=== PATIENT | female | born 1975 | race Hispanic/Latino ===

== ENCOUNTER 2017-12-28 16:35 | Day surgery (SDC) | payer OTHER, SELFPAY ==
[2017-12-28 17:06] VITALS: BP 130/72; TEMP 98.1; BMI 28.9
[2017-12-28 17:50] LABS: Amnisure Test No Membranes Rupture (No Rupture)
[2017-12-28 17:51] LABS: Amnisure Internal Control QC ACCEPTABLE (ACCEPTABLE)
--- NOTE | 2017-12-28 18:27 | PDOC.LDHP ---
Labor and Delivery H&P Chief complaint: loss of fluid HPI: 42 y/o at 38w1d, patient of Dr. Briseno, presents with a small amount of LOF today with some intermittent contractions. Denies VB, LOF, or decreased FM. ROS neg for HEENT, CV, pulm, GI, , neuro, psych, skin, musculoskeletal, or constitutional symptoms other than mentioned above. OB History Details: 3 prior term SVDs D&C for triplets Current complications: none Past Medical History: Hx HSV Current medications: pre-kasey vitamins Previous surgical history: dilation and curettage Allergies/Adverse Reactions: Allergies Allergy/AdvReac Type Severity Reaction Status Date / Time No Known Allergies Allergy Verified 05/14/15 18:15 Social history: none - Physical Exam Vital signs reviewed and normal: yes General: NAD, resting Lungs: nonlabored breathing Abdomen: gravid Extremeties: no edema FHT: category 1 [place] contractions every: intermittent - Vaginal Exam cm dilated: 3 Effacement: 50% Station: -2 - OB Labs Additional Labs: Amnisure negative - Assessment 42 y/o at 38w1d with no e/o SROM or labor. status reassuring with reactive NST. - Plan -: D/c home with precautions. Advised to keep appointments as scheduled.
== END 2017-12-28 18:30 | disposition home or self-care (01) ==
LOC: L&D/OP 16:35
PROVIDERS: ATTEND Obstetrics & Gynecology
DX: O47.1 False labor at or after 37 completed weeks of gestation (principal); Z3A.38 38 weeks gestation of pregnancy
CPT/HCPCS: 84112; 99282

== ENCOUNTER 2017-12-31 11:50 | Inpatient (IN) | payer BC, SELFPAY ==
[2017-12-31] MEDS ORDERED: Promethazine HCl 25 MG/ML VIAL IM PRN ×2 (12:28→15:22)
[2017-12-31] MEDS ORDERED: Ondansetron HCl/PF 4 MG/2 ML Vial IVP PRN ×3 (12:28→20:47)
[2017-12-31] MEDS ORDERED: Acetaminophen 500 MG TAB PO PRN (12:28)
[2017-12-31] MEDS ORDERED: Dextrose 5%-Lactated Ringers 1,000 ML IV SCH (12:30)
[2017-12-31] MEDS ORDERED: Penicillin G Potassium 5 MILL.UNITS in Sodium Chloride 0.9% 100 ML IVPB SCH (12:30)
[2017-12-31] MEDS ORDERED: NS w/ Oxytocin 10 units 500 ML IVPB SCH (12:45)
[2017-12-31 12:49] VITALS: BMI 29.2
[2017-12-31 13:01] LABS: Hemoglobin 11.8 g/dL (12.0-16.0); Mean Corpuscular HGB CONC 33.2 g/dL (32.0-36.0); Mean Corpuscular Hemoglobin 28.4 pg (27.0-31.0); Mean Corpuscular Volume 85.6 fl (81.0-99.0); Mean Platelet Volume 8.5 fL (7.4-10.4); Platelet Count 231 thou/uL (130-400); RBC Distribution Width 20.3 % (11.5-14.5); Red Blood Cell (RBC) Count 4.15 mill/uL (4.20-5.40); White Blood Cell (WBC) Count 11.2 thou/uL (4.8-10.8)
[2017-12-31 13:34] LABS: HBSAg Index 0.14 S/CO (0-0.99); HIV (1/2) Antibody/Antigen Non-Reactive (NonReactive); HIV 1/2 INDEX 0.12 S/CO (<1.00); Hep B Surf Ag Non-Reactive S/CO (NonReactive); Syphilis Antibody Nonreactive (Nonreactive); Syphilis Antibody Index 0.05 S/CO (<1.00 Non-Reactive)
[2017-12-31] MEDS ORDERED: DISCONTINUE ALL PREVIOUS NARCOTICS FS SCH (13:45)
[2017-12-31] MEDS ORDERED: Bupivacaine 0.75% 13.4 ML, fentaNYL Citrate/PF 400 MCG in Sodium Chloride 0.9% 78.6 ML EPIDURAL SCH ×2 (13:45→16:00)
[2017-12-31] MEDS ORDERED: Butorphanol Tartrate 1 MG/ML VIAL ONE (14:10)
[2017-12-31] MEDS ORDERED: NS / Oxytocin 40 units/1000ml 1,000 ML ONE (14:25)
[2017-12-31] MEDS ORDERED: diphenhydrAMINE 50 MG/ML VIAL IVP PRN (15:22)
[2017-12-31] MEDS ORDERED: Eucerin (Mineral Oil/Petrolatum,White) 30 gm Jar TOP PRN (15:22)
[2017-12-31] MEDS ORDERED: Naloxone HCl 0.4 mg/ml Vial IVP PRN ×2 (15:22)
[2017-12-31] MEDS ORDERED: Lactated Ringer's 500 ML IV PRN (15:22)
[2017-12-31] MEDS ORDERED: ePHEDrine/0.9% NaCl/PF SYRINGE 50 mg/10 ml SLOW IVP PRN (15:22)
[2017-12-31] MEDS ORDERED: Acetaminophen 325 MG TAB PO PRN (15:22)
[2017-12-31] MEDS ORDERED: Fentanyl 4mcg/Marcaine 0.1% Cassette 100 ML EPIDURAL SCH (15:30)
[2017-12-31] MEDS ORDERED: Communication Order-Pharmacy FS SCH (15:30)
[2017-12-31] MEDS ORDERED: Penicillin G Potassium 2.5 MILL.UNITS in Sodium Chloride 0.9% 50 ML IVPB SCH (16:00)
[2017-12-31] MEDS ORDERED: Penicillin G 2.5 MILL.units 50 ML ONE (16:18)
[2017-12-31] MEDS: Penicillin G Potassium 2.5 MILL.UNITS in Sodium Chloride 0.9% 50 ML IVPB SCH ×2 (18:41→21:19)
[2017-12-31] MEDS: NS / Oxytocin 40 units/1000ml 1,000 ML IV SCH ×2 (20:40→21:45)
[2017-12-31] MEDS ORDERED: Milk Of Magnesia 30 ML UDCUP PO PRN (20:47)
[2017-12-31] MEDS ORDERED: Acetaminophen/Codeine 30-300mg Tablet PO PRN ×2 (20:47)
[2017-12-31] MEDS ORDERED: Lanolin Ointment 7 GM TUBE TOP PRN (20:47)
[2017-12-31] MEDS ORDERED: Bisacodyl 10 MG SUPP PR PRN (20:47)
[2017-12-31] MEDS ORDERED: Benzocaine/Menthol 20-0.5% 60 ML CAN TOP PRN (20:47)
[2017-12-31] MEDS ORDERED: diphenhydrAMINE 25 MG CAP PO PRN (20:47)
[2017-12-31] MEDS ORDERED: Preparation H Ointment 28 GM TUBE PR PRN (20:47)
[2017-12-31] MEDS ORDERED: Zolpidem Tartrate 5 MG TAB PO PRN (20:47)
[2017-12-31] MEDS: Ibuprofen 800 MG TAB PO SCH (23:22)
[2017-12-31] MEDS: Docusate Calcium (SURFAK) 240 MG CAP PO SCH (23:22)
[2018-01-01] MEDS: Ibuprofen 800 MG TAB PO SCH ×3 (06:43→21:18)
[2018-01-01] MEDS: Ferrous Sulfate 325 MG TAB PO SCH ×2 (07:44→17:53)
[2018-01-01] MEDS ORDERED: Adacel (T-DAP) 0.5 ML VIAL IM ONE (09:00)
[2018-01-01] MEDS: Prenatal Vitamin 1 TAB PO SCH (09:25)
[2018-01-01] MEDS: Docusate Calcium (SURFAK) 240 MG CAP PO SCH ×2 (09:25→21:18)
[2018-01-02 01:54] VITALS: BP 138/73; TEMP 97.9
[2018-01-02] MEDS: Ibuprofen 800 MG TAB PO SCH (06:18)
[2018-01-02] MEDS: Ferrous Sulfate 325 MG TAB PO SCH (09:08)
[2018-01-02] MEDS: Prenatal Vitamin 1 TAB PO SCH (09:41)
[2018-01-02] MEDS: Docusate Calcium (SURFAK) 240 MG CAP PO SCH (09:41)
== END 2018-01-02 13:25 | disposition home or self-care (01) | DRG 775 ==
LOC: L&D 11:50 → 3SW 22:13
PROVIDERS: ADMIT Obstetrics & Gynecology; ATTEND Obstetrics & Gynecology
PROC: 10E0XZZ Delivery of Products of Conception, External Approach (ICD-10-PCS; principal; 2017-12-31)
PROC: 4A0HXCZ Measurement of Products of Conception, Cardiac Rate, External Approach (ICD-10-PCS; 2017-12-31)
DX: O80 Encounter for full-term uncomplicated delivery (principal); Z3A.39 39 weeks gestation of pregnancy; Z37.0 Single live birth; Z87.891 Personal history of nicotine dependence
CPT/HCPCS: 51702; 85027; 86780; 86850; 86900; 86901; 87340; 87389; J0595; J2540; J3010; J7050

== ENCOUNTER 2019-10-12 11:21 | Outpatient (CLI) | payer BC ==
[2019-10-12 12:28] LABS: #Eosinphils 0.1 thou/uL (0.0-0.7); #Lymphocytes 1.4 thou/uL (1.20-3.40); #Monocytes 0.3 thou/uL (0.11-0.59); #Neutrophils 3.7 thou/uL (1.40-6.50); %Basophils 0.1 % (0.0-1.0); %Eosinophils 1.9 % (0.0-10.0); %Lymphocytes 24.5 % (21.0-51.0); %Monocytes 5.8 % (0.0-10.0); %Neutrophils 67.6 % (42.0-75.0); Hemoglobin 13.9 g/dL (12.0-16.0); Mean Corpuscular HGB CONC 33.4 g/dL (32.0-36.0); Mean Corpuscular Hemoglobin 31.8 pg (27.0-31.0); Mean Platelet Volume 8.4 fL (7.4-10.4); Platelet Count 221 thou/uL (130-400); RBC Distribution Width 11.7 % (11.5-14.5); Red Blood Cell (RBC) Count 4.36 mill/uL (4.20-5.40); White Blood Cell (WBC) Count 5.5 thou/uL (4.8-10.8)
[2019-10-12 12:44] LABS: BHCG - Serum Negative (NEGATIVE); Pregs Control Background? CLEAR/WHITE (CLR/WHITE); Pregs Control Bar Appear? YES (CONTROL BAR)
[2019-10-12 12:46] LABS: ALT (SGPT) 11 U/L (8-55); AST (SGOT) 12 U/L (5-34); Albumin 4.5 g/dL (3.5-5.0); Alkaline Phosphatase 60 U/L (40-110); Anion Gap 9 mmol/L (10-20); BUN (Urea Nitrogen) 7 mg/dL (7.0-18.7); Bilirubin, Direct 0.3 mg/dL (0.1-0.3); Bilirubin, Total 0.7 mg/dL (0.2-1.2); Calc. Creatinine Clearance 0 mL/min (70-130); Calcium 9.2 mg/dL (7.8-10.44); Carbon Dioxide 27 mmol/L (22-29); Chloride 106 mmol/L (98-107); Estimated GFR-MDRD 86; Globulin 2.9 g/dL (2.4-3.5); Glucose 97 mg/dL (70-105); Potassium 4.4 mmol/L (3.5-5.1); Protein, Total 7.4 g/dL (6.0-8.3); Sodium 138 mmol/L (136-145)
== END 2019-10-12 11:22 | disposition home or self-care (01) ==
LOC: LABBT 11:21
PROVIDERS: ATTEND Surgery
DX: Z01.812 Encounter for preprocedural laboratory examination (principal); K81.0 Acute cholecystitis
CPT/HCPCS: 80053; 80076; 84703; 85025

== ENCOUNTER 2019-10-13 05:54 | Day surgery (SDC) | payer BC ==
[2019-10-12 11:51] VITALS: BMI 22.4
[2019-10-13] MEDS ORDERED: SUGAMMADEX SODIUM 200 MG/2 ML VIAL ONE (06:30)
[2019-10-13] MEDS ORDERED: Fentanyl 100 MCG/2 ML VIAL ONE ×2 (06:30→08:35)
[2019-10-13] MEDS ORDERED: Lidocaine 1% w/Epinephrine 1:100K 20 ML VIAL ONE (06:46)
[2019-10-13] MEDS ORDERED: Bupivacaine 0.25% HCL 30 ML VIAL ONE (06:46)
[2019-10-13] MEDS ORDERED: Midazolam HCl 2 mg/2 ml Vial ONE (07:15)
[2019-10-13] MEDS ORDERED: Promethazine HCl 25 MG/ML VIAL ONE (08:35)
[2019-10-13] MEDS ORDERED: Morphine 2 MG/ML SYRINGE ONE ×2 (09:34→09:53)
[2019-10-13] MEDS ORDERED: Lidocaine Viscous Sol 2% 15 ml UD Cup SSP SCH ×2 (10:00→10:15)
[2019-10-13] MEDS ORDERED: Mag-Al 1200 mg/1200 mg/30 ML UDCUP PO SCH (10:00)
--- NOTE | 2019-10-13 10:01 | OP ---
DATE OF PROCEDURE: 10/13/2019 PREOPERATIVE DIAGNOSIS: Acute cholecystitis. PROCEDURE PERFORMED: Laparoscopic cholecystectomy. INDICATIONS: This is a 43-year-old female who went to the emergency room yesterday with severe epigastric pain, duration 3 days, associated with nausea, vomiting. Ultrasound showed thickened gallbladder wall findings. She had quite a bit of edema and a distended gallbladder consistent with acute cholecystitis, small caliber cystic duct. DESCRIPTION OF PROCEDURE: After informed consent was obtained, patient was taken to the operating room and given general endotracheal anesthesia, placed in supine position. Abdomen was prepped and draped in usual fashion. Local anesthesia infiltrated subcutaneously and deep. Because of a previous umbilical hernia repair, started off far lateral right subcostal. A 5 mm incision was performed. A Veress needle inserted, drop test performed. Pneumoperitoneum was created to a volume of 2 L of carbon dioxide. Utilizing a bladeless 5-mm trocar and 0-degree laparoscope, direct visual entry into abdominal cavity was performed. Pneumoperitoneum was created to a pressure of 15 mmHg. The 5 mm scope was inserted. The abdominal wall inspected. There were no adhesions at the umbilicus. A subumbilical incision was performed. Subcu divided sharply. The fascia incised and a blunt 12 mm trocar inserted. The scope was changed out to a 10 mm scope and the patient positioned. Two other 5 mm ports were placed subcostally. The gallbladder had to be aspirated, it was so distended and thickened, but the bile was very thickened and was more like a hydrops. The gallbladder advanced superiorly. The peritoneum was opened distally to allow dissection of the cystic artery, cystic duct, and critical view. The duct and artery were triply ligated with hemoclips and divided. The gallbladder removed from its fossa utilizing electrocautery, removed from the abdomen in an Endosac through the umbilical port. Hemostasis assured. Trocars and retractors removed. The fascia closed with interrupted 2-0 Vicryl suture. The skin closed with interrupted 4-0 Rapide. Dermabond applied. The patient tolerated the procedure well, transferred to Recovery in good condition. Sponge and needle counts verified correct x2. Job ID: [id number]
[2019-10-13] MEDS ORDERED: Lidocaine 1% PF 5 ML VIAL ONE (10:14)
[2019-10-13] MEDS ORDERED: PROPOFOL 200 MG/20 ML VIAL ONE (10:14)
[2019-10-13] MEDS ORDERED: Dexamethasone 20 MG/5 ML VIAL ONE (10:14)
[2019-10-13] MEDS ORDERED: Ondansetron PF 4 MG/2 ML Vial ONE (10:14)
[2019-10-13] MEDS ORDERED: Rocuronium Bromide 10 MG/ML (10ML VIAL) ONE (10:14)
[2019-10-13] MEDS ORDERED: Metoclopramide HCl 10 MG/2 ML VIAL ONE (10:14)
[2019-10-13] MEDS ORDERED: Ketorolac Tromethamine 30 MG/ML VIAL ONE (10:39)
--- NOTE | 2019-10-13 22:48 | EKG ---
Test Reason : PREOP Blood Pressure : / mmHG Vent. Rate : 055 BPM Atrial Rate : 055 BPM P-R Int : 142 ms QRS Dur : 098 ms QT Int : 464 ms P-R-T Axes : 050 043 043 degrees QTc Int : 443 ms Sinus bradycardia with sinus arrhythmia Moderate voltage criteria for LVH, may be normal variant Borderline ECG No previous ECGs available Confirmed by Jed MASSEY ([id number]) on 10/13/2019 10:47:55 PM Referred By: CARMENCITA Confirmed By:Jed MASSEY
== END 2019-10-13 12:45 | disposition home or self-care (01) ==
LOC: SDC 05:54
PROVIDERS: ATTEND Surgery
PROC: 0FT44ZZ Resection of Gallbladder, Percutaneous Endoscopic Approach (ICD-10-PCS; principal; 2019-10-13)
DX: K80.12 Calculus of gallbladder with acute and chronic cholecystitis without obstruction (principal); Z79.899 Other long term (current) drug therapy; Z87.891 Personal history of nicotine dependence
CPT/HCPCS: 87070; 87205; 88304; 93005; 93010; J0694; J1100; J1885; J2001; J2250; J2270; J2405; J2550; J2704; J2765; J3010; S0020

== ENCOUNTER 2020-09-22 09:01 | Outpatient (CLI) | payer BC | END 2020-09-22 09:02 | disposition home or self-care (01) | LOC: BICMAMMO 09:01 | PROVIDERS: ATTEND Obstetrics & Gynecology | DX: Z12.31 Encounter for screening mammogram for malignant neoplasm of breast (principal) | CPT/HCPCS: 77063; 77067 ==

== ENCOUNTER 2022-04-02 11:33 | Outpatient (CLI) | payer BC | END 2022-04-02 11:34 | disposition home or self-care (01) | LOC: BICMAMMO 11:33 | PROVIDERS: ATTEND Obstetrics & Gynecology | DX: Z12.31 Encounter for screening mammogram for malignant neoplasm of breast (principal) | CPT/HCPCS: 77063; 77067 ==